=== PATIENT | male | born 2000 | race Caucasian/White ===

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

== ENCOUNTER 2024-12-17 01:05 | Emergency (ER) | payer BC ==
[2024-12-17] MEDS ORDERED: Boostrix 0.5 ML (Tdap) VIAL (>/=7 yrs of age) ONE (01:36)
[2024-12-17] MEDS ORDERED: Cyclobenzaprine 10 MG TAB ONE (01:36)
[2024-12-17] MEDS ORDERED: Acetaminophen 500 MG TAB ONE (01:36)
[2024-12-17] MEDS ORDERED: Tetracaine 0.5% PF 4 ML BOT ONE (02:07)
== END 2024-12-17 03:14 | disposition home or self-care (01) ==
LOC: BURERS 01:05
DX: S02.32XA Fracture of orbital floor, left side, initial encounter for closed fracture (principal); S01.01XA Laceration without foreign body of scalp, initial encounter; S05.12XA Contusion of eyeball and orbital tissues, left eye, initial encounter; S60.417A Abrasion of left little finger, initial encounter; F17.210 Nicotine dependence, cigarettes, uncomplicated; Y04.0XXA Assault by unarmed brawl or fight, initial encounter; Z55.6 Problems related to health literacy
CPT/HCPCS: 12001; 70450; 70486; 72125; 90471; 90715